=== PATIENT | female | born 1970 | race African-American/Black ===

== ENCOUNTER 2019-05-20 08:08 | Emergency (ER) | payer OTHER, SELFPAY ==
[2019-05-20 09:35] LABS: Potassium 3.4 mmol/L (3.5-5.1)
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
[2019-05-20 10:06] LABS: Absolute Lymphocytes (CBC) 1.3 K/uL (0.7-4.9); Basophils % 0.2 % (0-1.3); Hematocrit 36.9 % (36.0-45.0); Lymphocytes % 15.2 % (15.3-44.8); MPV 8.9 fL (7.6-11.3); RBC Red Blood Cell Count 4.56 M/uL (3.86-4.86)
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
[2019-05-20 11:29] VITALS: BP 143/90; TEMP 98.2; O2SAT 100
== END 2019-05-20 11:07 | disposition home or self-care (01) ==
LOC: ER 08:08
DX: S22.42XA Multiple fractures of ribs, left side, initial encounter for closed fracture (principal); V59.50XA Passenger in pick-up truck or van injured in collision with unspecified motor vehicles in traffic accident, initial encounter; I10 Essential (primary) hypertension; Z86.73 Personal history of transient ischemic attack (TIA), and cerebral infarction without residual deficits
CPT/HCPCS: 36415; 71046; 74177; 80048; 85025; 86850; 86900; 86901; 99284; Q9967

== ENCOUNTER 2020-07-31 23:49 | Inpatient (IN) | payer SELFPAY ==
[2020-08-01 00:30] LABS: Absolute Lymphocytes (CBC) 2.6 K/uL (0.7-4.9); Basophils % 0.8 % (0-1.3); Hematocrit 40.9 % (36.0-45.0); Lymphocytes % 31.7 % (15.3-44.8); MPV 8.3 fL (7.6-11.3); Protime INR 0.86; RBC Red Blood Cell Count 5.04 M/uL (3.86-4.86)
[2020-08-01] MEDS ORDERED: ASPIRIN 81 MG CHEWABLE TABLET ONE (00:44)
[2020-08-01 00:48] LABS: ALT/SGPT 18 U/L (12-78); AST/SGOT 10 U/L (15-37); Alkaline Phosphatase 109 U/L (45-117); BUN Blood Urea Nitrogen 10 mg/dL (7-18); Bicarbonate 26 mmol/L (21-32); Bilirubin Direct < 0.1 mg/dL (0-0.2); Bilirubin Total 0.3 mg/dL (0.2-1.0); Glucose Level 104 mg/dL (74-106); Magnesium 2.4 mg/dL (1.8-2.4); NT PRO-BNP 103 pg/mL (<125); Potassium 3.3 mmol/L (3.5-5.1); Protein, Total 8.4 g/dL (6.4-8.2); Sodium Level 144 mmol/L (136-145); Troponin (Emerg Dept Use Only) < 0.02 ng/mL (0.0-0.045)
--- NOTE | 2020-08-01 02:55 | ER ---
Nurse's Notes [facility] Name: Radha Alba Age: 49 yrs Sex: Female : 1970 Arrival Date: 07/31/2020 Time: 23:55 Bed 15 Private MD: Diagnosis: Chest pain, unspecified Presentation: 07/31 23:56 Chief complaint: Patient states: Left sided chest pain that radiates into the left arm sg at this time, reports feeling slightly short of breath with ambulation, denies N/V/D/Fever for triage. Coronavirus screen: Client denies travel out of the [place] in the last 14 days. shortness of breath, Client presents with at least one sign or symptom that may indicate coronavirus-19. Standard/surgical mask placed on the client. Ebola Screen: Patient negative for fever greater than or equal to 101.5 degrees Fahrenheit, and additional compatible Ebola Virus Disease symptoms Patient denies exposure to infectious person. Patient denies travel to an Ebola-affected area in the 21 days before illness onset. No symptoms or risks identified at this time. Initial Sepsis Screen: Does the patient meet any 2 criteria? No. Patient's initial sepsis screen is negative. Does the patient have a suspected source of infection? No. Patient's initial sepsis screen is negative. Risk Assessment: Do you want to hurt yourself or someone else? Patient reports no desire to harm self or others. Onset of symptoms was July 31, 2020. Care prior to arrival: None. Transition of care: patient was not received from another setting of care. 23:56 Method Of Arrival: Ambulatory 23:56 Acuity: ALEM 3 sg Historical: - Allergies: 23:56 No Known Allergies; sg - PMHx: 23:56 Anemia; High Cholesterol; stroke; Hypertension; uterine fibroids; sg - PSHx: 23:56 Tubal ligation; Hysterectomy; sg - Immunization history:: Adult Immunizations up to date. - Social history:: Smoking status: Patient denies any tobacco usage or history of. Screenin/02 00:05 Abuse screen: Denies threats or abuse. Nutritional screening: No deficits noted. ea Tuberculosis screening: No symptoms or risk factors identified. Fall Risk None identified. Assessment: 00:14 General: Appears in no apparent distress. comfortable, Behavior is calm, cooperative. mg2 Pain: Complains of pain in left side of the chest Pain radiates to across the right chest Pain currently is 1 out of 10 on a pain scale. Quality of pain is described as aching, Pain began gradually, 2 hours ago. Is intermittent. Neuro: Level of Consciousness is awake, alert, obeys commands, Oriented to person, place, time, situation. Cardiovascular: Capillary refill < 3 seconds Patient's skin is warm and dry. Respiratory: Airway is patent Respiratory effort is even, unlabored, Respiratory pattern is regular, symmetrical. Respiratory: Reports shortness of breath. GI: No signs and/or symptoms were reported involving the gastrointestinal system. : No signs and/or symptoms were reported regarding the genitourinary system. EENT: No signs and/or symptoms were reported regarding the EENT system. Derm: Skin is intact, is healthy with good turgor, Skin is pink, warm \T\ dry. normal. Musculoskeletal: Circulation, motion, and sensation intact. Capillary refill < 3 seconds. 02:09 Reassessment: Patient appears in no apparent distress at this time. Patient and/or mg2 family updated on plan of care and expected duration. Pain level reassessed. Patient is alert, oriented x 3, equal unlabored respirations, skin warm/dry/pink. Vital Signs: 00:03 BP 126 / 96; Pulse 99; Resp 18; Temp 98(O); Pulse Ox 99% ; mg2 00:05 Weight 72.57 kg; Height 5 ft. 4 in. (162.56 cm); ea 01:18 BP 116 / 77; Pulse 93; Resp 18; Pulse Ox 97% on R/A; mg2 02:09 BP 130 / 90; Pulse 95; Resp 18; Pulse Ox 98% on R/A; mg2 00:05 Body Mass Index 27.46 (72.57 kg, 162.56 cm) ea ED Course: 07/31 23:55 Patient arrived in ED. sg 23:55 Arm band placed on. sg 23:57 Triage completed. 08/01 00:00 Lan Dale MD is Attending Physician. mh7 00:02 Inserted saline lock: 20 gauge in right antecubital area, using aseptic technique. ds4 Blood collected. 00:05 Patient has correct armband on for positive identification. Placed in gown. Bed in low ea position. Call light in reach. quality assurance monitor body on. Pulse ox on. NIBP on. 00:05 Patient maintains SpO2 saturation greater than 95% on room air. ea 00:11 Cuauhtemoc Ramsey, RN is Primary Nurse. mg2 00:14 Door closed. Warm blanket given. mg2 00:15 No provider procedures requiring assistance completed. mg2 00:45 XRAY Chest (1 view) In Process Unspecified. EDMS 02:55 Quentin David MD is Hospitalizing Provider. mh7 03:14 Patient admitted, IV remains in place. mg2 03:14 covid swab sent to lab. mg2 Administered Medications: 00:32 Drug: Aspirin Chewable Tablet 324 mg Route: PO; mg2 02:10 Follow up: Response: No adverse reaction mg2 Outcome: 02:55 Decision to Hospitalize by Provider. 7 03:18 Admitted to Med/surg accompanied by nurse, via wheelchair, room 213, with chart, Report mg2 called to ASH Bojorquez 03:18 Condition: stable 03:18 Instructed on the need for admit, Demonstrated understanding of instructions. 03:22 Patient left the ED. mg2 Signatures: Dispatcher [employer] EDAK James Montenegro RN RN Chip Vo ds4 Cindi Anguiano RN RN ea Cuauhtemoc Ramsey, ASH ALEMAN mg2 Lan Dale MD MD 7 Corrections: (The following items were deleted from the chart) 00:28 00:03 BP 126 / 96; Pulse 99bpm; Resp 18bpm; Pulse Ox 99%; ea mg2
--- NOTE | 2020-08-01 02:55 | EDPHYS ---
Physician Documentation [facility] Name: Radha Alba Age: 49 yrs Sex: Female : 1970 Arrival Date: 07/31/2020 Time: 23:55 Bed 15 Private MD: ED Physician Lan Dale HPI: 08/01 01:00 This 49 yrs old Black Female presents to ER via Ambulatory with complaints of Chest mh7 Pain > 30 y/o. 01:00 The patient or guardian reports chest pain that is located primarily in the anterior mh7 chest wall, left. 01:00 Onset: last night, at 22:30. The pain radiates to the left arm. Associated signs and mh7 symptoms: Pertinent positives: shortness of breath, Pertinent negatives: abdominal pain, cough, diaphoresis, dizziness, headache, lower extremity pain, lower extremity swelling, lightheadedness, nausea, near syncope, palpitations, recent travel, syncope, vomiting. The chest pain is described as a heaviness. Duration: The patient or guardian reports multiple episodes, that are intermittent, that wax and wane. Modifying factors: The symptoms are alleviated by nothing. the symptoms are aggravated by nothing. Severity of pain: At its worst the pain was moderate today, in the emergency department the pain has improved moderately. Historical: - Allergies: 07/31 23:56 No Known Allergies; sg - PMHx: 23:56 Anemia; High Cholesterol; stroke; Hypertension; uterine fibroids; sg - PSHx: 23:56 Tubal ligation; Hysterectomy; sg - Immunization history:: Adult Immunizations up to date. - Social history:: Smoking status: Patient denies any tobacco usage or history of. ROS: 08/01 01:00 Constitutional: Negative for fever, chills, and weight loss, Eyes: Negative for injury, mh7 pain, redness, and discharge, ENT: Negative for injury, pain, and discharge, Neck: Negative for injury, pain, and swelling, Abdomen/GI: Negative for abdominal pain, nausea, vomiting, diarrhea, and constipation, Back: Negative for injury and pain, : Negative for injury, bleeding, discharge, and swelling, MS/Extremity: Negative for injury and deformity, Skin: Negative for injury, rash, and discoloration, Neuro: Negative for headache, weakness, numbness, tingling, and seizure, Psych: Negative for depression, anxiety, suicide ideation, homicidal ideation, and hallucinations, Allergy/Immunology: Negative for hives, rash, and allergies, Endocrine: Negative for neck swelling, polydipsia, polyuria, polyphagia, and marked weight changes, Hematologic/Lymphatic: Negative for swollen nodes, abnormal bleeding, and unusual bruising. Exam: 01:00 Constitutional: This is a well developed, well nourished patient who is awake, alert, mh7 and in no acute distress. Head/Face: Normocephalic, atraumatic. Eyes: Pupils equal round and reactive to light, extra-ocular motions intact. Lids and lashes normal. Conjunctiva and sclera are non-icteric and not injected. Cornea within normal limits. Periorbital areas with no swelling, redness, or edema. Neck: Trachea midline, no thyromegaly or masses palpated, and no cervical lymphadenopathy. Supple, full range of motion without nuchal rigidity, or vertebral point tenderness. No Meningismus. Chest/axilla: Normal chest wall appearance and motion. Nontender with no deformity. No lesions are appreciated. Cardiovascular: Regular rate and rhythm with a normal S1 and S2. No gallops, murmurs, or rubs. Normal PMI, no JVD. No pulse deficits. Respiratory: Lungs have equal breath sounds bilaterally, clear to auscultation and percussion. No rales, rhonchi or wheezes noted. No increased work of breathing, no retractions or nasal flaring. Abdomen/GI: Soft, non-tender, with normal bowel sounds. No distension or tympany. No guarding or rebound. No evidence of tenderness throughout. Back: No spinal tenderness. No costovertebral tenderness. Full range of motion. Skin: Warm, dry with normal turgor. Normal color with no rashes, no lesions, and no evidence of cellulitis. MS/ Extremity: Pulses equal, no cyanosis. Neurovascular intact. Full, normal range of motion. Neuro: Awake and alert, GCS 15, oriented to person, place, time, and situation. Cranial nerves II-XII grossly intact. Motor strength 5/5 in all extremities. Sensory grossly intact. Cerebellar exam normal. Normal gait. Psych: Awake, alert, with orientation to person, place and time. Behavior, mood, and affect are within normal limits. Vital Signs: 00:03 BP 126 / 96; Pulse 99; Resp 18; Temp 98(O); Pulse Ox 99% ; mg2 00:05 Weight 72.57 kg; Height 5 ft. 4 in. (162.56 cm); ea 01:18 BP 116 / 77; Pulse 93; Resp 18; Pulse Ox 97% on R/A; mg2 02:09 BP 130 / 90; Pulse 95; Resp 18; Pulse Ox 98% on R/A; mg2 00:05 Body Mass Index 27.46 (72.57 kg, 162.56 cm) ea MDM: 00:18 Patient medically screened. [facility] 02:53 Differential diagnosis: acute myocardial infarction, acute pericarditis, anxiety, mh7 coronary artery disease chest wall pain, congestive heart failure costochondritis, myocarditis, pericarditis, pneumonia, pneumothorax. HEART Score: History: Moderately Suspicious (1), ECG: Non specific repolarization disturbance / LBTB / PM (1), Age: > 45 and < 65 years (1), Risk Factors: 1 or 2 risk factors (1), [Hypercholesterolemia] [Hypertension] Troponin: < or = 1 x Normal Limit (0), Total Score = 4. The patient was given aspirin in the Emergency Department. Data reviewed: vital signs, nurses notes, old medical records, lab test result(s), cardiac enzymes, CBC, electrolytes, urinalysis, EKG, radiologic studies, plain films. Data interpreted: Pulse oximetry: on room air is 98 %. Interpretation: normal. Counseling: I had a detailed discussion with the patient and/or guardian regarding: the historical points, exam findings, and any diagnostic results supporting the discharge/admit diagnosis, lab results, radiology results, the need for further work-up and treatment in the hospital. 08/01 00:13 Order name: Basic Metabolic Panel mg2 08/01 00:13 Order name: CBC with Diff; Complete Time: :48 mg2 08/01 00:13 Order name: LFT's; Complete Time: 48 mg2 08/01 00:13 Order name: Magnesium; Complete Time: 48 mg2 08/01 00:13 Order name: NT PRO-BNP; Complete Time: :48 mg2 08/01 00:13 Order name: PT-INR; Complete Time: 48 mg2 08/01 00:13 Order name: Troponin (emerg Dept Use Only); Complete Time: 01:48 mg2 08/01 00:13 Order name: XRAY Chest (1 view) mg2 08/01 00:13 Order name: EKG; Complete Time: 00:14 mg2 08/01 00:13 Order name: Cardiac monitoring; Complete Time: 00:13 mg2 08/01 00:13 Order name: EKG - Nurse/Tech; Complete Time: 00:13 mg2 08/01 00:14 Order name: Basic Metabolic Panel; Complete Time: 01:48 EDCO 08/01 02:56 Order name: COVID-19 mg2 08/01 00:13 Order name: IV Saline Lock; Complete Time: 00:13 mg2 08/01 00:13 Order name: Labs collected and sent; Complete Time: 00:13 mg2 08/01 00:13 Order name: O2 Per Protocol; Complete Time: 00:13 mg2 08/01 00:13 Order name: O2 Sat Monitoring; Complete Time: 00:13 mg2 Administered Medications: 00:32 Drug: Aspirin Chewable Tablet 324 mg Route: PO; mg2 02:10 Follow up: Response: No adverse reaction mg2 Disposition: 08/01/20 02:55 Hospitalization ordered by Quentin David for Observation. Preliminary diagnosis is Chest pain, unspecified. - Bed requested for Telemetry/MedSurg (observation). - Status is Observation. mg2 - Condition is Stable. - Problem is new. - Symptoms have improved. Signatures: Dispatcher [employer] EDCO James Montenegro RN RN Tarah Oscar RN RN Cuauhtemoc Ramsey RN RN [facility] Lan Dale MD MD mh7 Corrections: (The following items were deleted from the chart) 03:08 02:55 Hospitalization Ordered by Quentin David MD for Observation. Preliminary cg diagnosis is Chest pain, unspecified. Bed requested for Telemetry/MedSurg (observation). Status is Observation. Condition is Stable. Problem is new. Symptoms have improved. mh7 03:22 03:08 08/01/2020 02:55 Hospitalization Ordered by Quentin David MD for Observation. mg2 Preliminary diagnosis is Chest pain, unspecified. Bed requested for Telemetry/MedSurg (observation). Status is Observation. Condition is Stable. Problem is new. Symptoms have improved. cg
--- NOTE | 2020-08-01 03:12 | P.HP ---
Certification for Inpatient Patient admitted to: Observation With expected LOS: <2 Midnights Patient will require the following post-hospital care: None Practitioner: I am a practitioner with admitting privileges, knowledge of patient current condition, hospital course, and medical plan of care. Services: Services provided to patient in accordance with Admission requirements found in Title 42 Section 412.3 of the Code of Federal Regulations <Faisal Foreman - Last Filed: 08/01/20 03:09> Patient History Date of Service: 08/01/20 Primary Care Provider: Whiting Ignacio Reason for admission: Chest pain History of Present Illness: 49-year-old female with history of hypertension, hyperlipi demia, CVA presents emergency department for chest pain. Patient reports that today around 11:00 p.m. she wanted to lie down and then when she began having retrosternal pressure-like chest pain, nonradiating, not associated with any other symptoms, not exacerbated or relieved by anything. Patient reports that she tried changing positions a few times and her pain was not relieved, this time she decided to come to the emergency department for further evaluation. Patient's workup in the emergency department unremarkable, troponin negative, EKG without acute findings, chest x-ray unremarkable. Patient has had echocardiogram and carotid ultrasound in the past when she had a stroke which was approximately 2013. Patient has never had stress test, patient reports that her vice president of customer service had her wear day event monitor and based on the results and recommended that she have a stress test approximately 1 year ago but she was unable to have this performed due to financial reasons and lack of insurance. ED provider wishes to admit patient for further evaluation and management. When I saw the patient in the emergency department she is awake, alert, oriented x3. Pain was relieved upon arrival to the emergency department, patient is currently pain-free. Patient be admitted under observation for chest pain. - Past Medical/Surgical History Diabetic: No -: Hypertension -: Hyperlipidemia -: Ischemic CVA-2013 -: Tubal ligation -: Uterine fibroid removed -: Hysterectomy Psychosocial/ Personal History: Patient lives at home with her family - Family History Father -: Lung disease Notes: Emphysema Mother -: Diabetes - Social History Smoking Status: Former smoker Alcohol use: Yes CD- Drugs: No Caffeine use: Yes Place of Residence: Home <Faisal Foreman - Last Filed: 08/01/20 03:09> Date of Service: 08/01/20 <Quentin David - Last Filed: 08/01/20 12:00> Allergies No Known Allergies Allergy (Verified 12/19/16 22:10) Home Medications: Multivitamin [Multivitamins] 1 cap PO DAILY 11/13/16 Aspirin [Aspirin EC 325 MG] 81 mg PO DAILY 08/01/20 Omeprazole [Prilosec] 1 tab PO DAILY 08/01/20 Rosuvastatin Calcium [Crestor] 10 mg PO DAILY 08/01/20 Review of Systems 10-point ROS is otherwise unremarkable Cardiovascular: Chest Pain, As per HPI <Faisal Foreman - Last Filed: 08/01/20 03:09> Physical Examination - Physical Exam General: Alert, In no apparent distress HEENT: Atraumatic, PERRLA, Mucous membr. moist/pink Neck: Supple, 2+ carotid pulse no bruit, No LAD Respiratory: Clear to auscultation bilaterally, Normal air movement Cardiovascular: Regular rate/rhythm, Normal S1 S2 Gastrointestinal: Normal bowel sounds, No tenderness Musculoskeletal: No tenderness Integumentary: No rashes Neurological: Normal speech, Normal strength at 5/5 x4 extr, Normal tone, Normal affect - Studies Laboratory Data (last 24 hrs) 08/01/20 00:02: PT 10.2, INR 0.86 08/01/20 00:02: WBC 8.3, Hgb 13.5, Hct 40.9, Plt Count 264 08/01/20 00:02: Sodium 144, Potassium 3.3 L, BUN 10, Creatinine 0.95, Glucose 104, Magnesium 2.4, Total Bilirubin 0.3, AST 10 L, ALT 18, Alkaline Phosphatase 109 <Faisal Foreman - Last Filed: 08/01/20 03:09> - Studies Laboratory Data (last 24 hrs) 08/01/20 05:20: Potassium 3.5, Troponin I < 0.02, Triglycerides 113, Cholesterol 123, HDL Cholesterol 87 H, Cholesterol/HDL Ratio 1.41 08/01/20 00:02: PT 10.2, INR 0.86 08/01/20 00:02: WBC 8.3, Hgb 13.5, Hct 40.9, Plt Count 264 08/01/20 00:02: Sodium 144, Potassium 3.3 L, BUN 10, Creatinine 0.95, Glucose 104, Magnesium 2.4, Total Bilirubin 0.3, AST 10 L, ALT 18, Alkaline Phosphatase 109 <Quentin David - Last Filed: 08/01/20 12:00> Assessment and Plan - Plan Assessment Chest pain rule out ACS Hypertension Hyperlipidemia GERD Plan Chest pain rule out ACS: Trend troponins, cardiology consult in place. Monitor on telemetry. Daily aspirin, statin, beta amparo. Continue home medications . DVT prophylaxis Lovenox 40 mg subcutaneous once daily. Hypertension: Obtain and continue home medications. Hyperlipidemia:Obtain and continue home medications. GERD:Obtain and continue home medications. Discharge Plan: Home Plan to discharge in: 24 Hours - Advance Directives Does patient have a Living Will: No Does patient have a Durable POA for Healthcare: No - Code Status/Comfort Care Code Status Assessed: Yes (Full code) Critical Care: No Time Spent Managing Pts Care (In Minutes): 55 <Faisal Foreman - Last Filed: 08/01/20 03:09> - Plan Plan of care discussed with Faisal Foreman, and I agree with the management plan as noted above. Patient seen and examined this morning. Continues with this intermittent chest pressure/tightness when lying down Troponin negative x2 so far. Reviewed case with cardiology and recommends nuclear excess stress test tomorrow Gen: NAD. CV: RRR, no m/r/g, no chest wall tenderness, Pulm: CTAB, Abd: soft, nontender, Ext: no edema <Quentin David - Last Filed: 08/01/20 12:00>
[2020-08-01 03:31] VITALS: O2SAT 98
[2020-08-01] MEDS ORDERED: ACETAMINOPHEN 500 MG TAB PO PRN (03:34)
[2020-08-01] MEDS ORDERED: ONDANSETRON 4 MG/2 ML VIAL IV PRN (03:34)
[2020-08-01 03:36] VITALS: BMI 35.2
[2020-08-01] MEDS: METOPROLOL TAR 25 MG TAB PO SCH ×2 (06:00→17:05)
[2020-08-01 06:04] LABS: HDL Cholesterol 87 mg/dL (40-60); LDL Cholesterol, Calculated 13 (<130); Potassium 3.5 mmol/L (3.5-5.1); Troponin I < 0.02 ng/mL (0.0-0.045)
[2020-08-01] MEDS: PANTOPRAZOLE 40MG TABLET PO SCH ×3 (06:16→08:13)
[2020-08-01] MEDS ORDERED: MORPHINE 2 MG/ML SYR IV PRN (08:01)
[2020-08-01] MEDS ORDERED: ONDANSETRON 4 MG/2 ML VIAL ONE (08:18)
[2020-08-01] MEDS ORDERED: MORPHINE 2 MG/ML SYR ONE (08:18)
--- NOTE | 2020-08-01 08:53 | RAD REPORT ---
EXAM DESCRIPTION: RAD - Chest Single View - 08/01/2020 12:45 am CLINICAL HISTORY: CHEST PAIN Chest pain. COMPARISON: Chest Pa And Lat (2 Views) dated 05/20/2019; Chest Single View dated 11/12/2016; CHEST SIN GLE VIEW dated 11/08/2014 FINDINGS: Portable technique limits examination quality. The lungs are grossly clear. The heart is normal in size. No displaced fractures. IMPRESSION: No acute intrathoracic process suspected.
[2020-08-01] MEDS: ENOXAPARIN 40 MG/0.4 ML SQ SCH (09:00)
[2020-08-01] MEDS ORDERED: POTASSIUM CL SA 10 MEQ TAB PO ONE (09:00)
[2020-08-01] MEDS: ASPIRIN EC 81 MG TAB PO SCH (09:24)
--- NOTE | 2020-08-01 19:21 | CON ---
Date of Consultation: 08/01/2020 Reason For Consultation: Chest pain. History Of Present Illness: A 49-year-old female with history of hypertension, dysl ipidemia, and CVA with residual weakness, presented with chest pain last night, pressure-like, left-s ided, no radiation, not related to exertion. No nausea, vomiting, or diaphoresis. Presented to the emergency room. EKG without acute abnormalities. Feels comfortable now, but she said the pain was t here earlier this morning. Past Medical History: As outlined above in the HPI. Medications: Refer to reconciliation sheet for detailed list. Past Surgical History: Hysterectomy. Allergies: NO KNOWN DRUG ALLERGIES. Family History: No premature coronary artery disease or cancer. Social History: She does not smoke or drink. Does not use any drugs. Review of Systems: All systems reviewed and they were negative except what mentioned in the HPI. Physical Examination: Vital Signs: Temperature is 97.2, pulse 78, breathing at 18, blood pressure 126/78, saturating 97% o n room air pleasant. General: Middle-aged female, in no distress. Head and Neck: Pupils are equal, reactive to light. Intact eye movements. No JVD. No cervical lym phadenopathy. Neck: Supple. Thyroid is not enlarged. Lungs: Clear to auscultation bilaterally. No rhonchi, rales, or crackles. No accessory muscle use. Heart: Regular rate and rhythm. No extra sounds. Abdomen: Soft, nontender. Bowel sounds positive. No organomegaly. No masses or hernia. No rigidi ty or rebound. Extremities: No edema, clubbing, or cyanosis. Intact pulses. Skin: No rash noted. Neuro: Alert, awake, and oriented x3. No acute focal deficits appreciated. Investigations: Troponin 3 sets are negative. Creatinine is 0.95 and hemoglobin is 16.5. Assessment And Plan: Chest pain. Has the risk factors including hypertension, dyslipidemia, and his tory of cerebrovascular accident, myocardial infarction was ruled out. Recommend exercise nuclear st ress test and an echocardiogram. Further recommendations based on the results of above tests. Meanw hile, continue aspirin 81 mg daily, oxygen therapy, and continue to monitor on telemetry. Thank you for this consultation. /MODL Voice ID: [id number] Report ID: [id number]
[2020-08-01] MEDS: ROSUVASTATIN 10 MG TAB PO SCH (21:10)
[2020-08-02 04:40] LABS: Magnesium 2.5 mg/dL (1.8-2.4); Potassium 3.9 mmol/L (3.5-5.1)
[2020-08-02] MEDS: METOPROLOL TAR 25 MG TAB PO SCH ×2 (06:00→17:17)
[2020-08-02] MEDS: PANTOPRAZOLE 40MG TABLET PO SCH (06:22)
[2020-08-02] MEDS: ASPIRIN EC 81 MG TAB PO SCH (07:59)
[2020-08-02] MEDS: ENOXAPARIN 40 MG/0.4 ML SQ SCH (09:00)
[2020-08-02] MEDS ORDERED: POTASSIUM CL SA 10 MEQ TAB PO ONE (09:00)
[2020-08-02] MEDS ORDERED: REGADENOSON 0.4 MG/5 ML SYR IV ONE (09:29)
--- NOTE | 2020-08-02 10:42 | P.DS ---
Admission Date: 08/01/20 Discharge Date: 08/03/20 Primary Care Provider: Nina Pierre Disposition: ROUTINE DISCHARGE Discharge Condition: FAIR Reason for Admission: Chest pain Procedures: None. Brief History of Present Illness: 49-year-old woman with a history of CVA, hypertension, hyperlipidemia presented to the emergency department with a complaint of chest pain which occurred at rest. EKG in the emergency department did not show any acute changes. Initial troponin was negative. Given patient's cardiac risk factors, she was hospitalized for further evaluation. Hospital Course: Troponin trended negative. Patient was seen by Cardiology-Dr. Liang who recommended exercise nuclear stress test. Patient was chest pain-free during the rest of the hospitalization. Stress test done reported reversible ischemia in the cardiac apex. Patient was planned for cardiac catheterization today but apparently there is an equipment failure. Dr. Liang recommended the patient stay another day for the cardiac catheterization tomorrow. Patient declined to stay another day. Dr. Liang is now arranging for patient to be admitted on Saturday night for cardiac catheterization the following morning. The patient is discharged with dual antiplatelet therapy-ASA and Plavix, beta-ampaor and statin. She is informed to report on Saturday night for cardiac catheterization the following morning. Vital Signs/Physical Exam: Temp Pulse Resp BP Pulse Ox 97.8 F 78 17 129/77 98 08/02/20 08:00 08/02/20 08:00 08/02/20 08:00 08/02/20 08:00 08/02/20 08:00 General: Alert, In no apparent distress Neck: Supple, JVD not distended Respiratory: Clear to auscultation bilaterally, Normal air movement Cardiovascular: No edema, Regular rate/rhythm, Normal S1 S2 Gastrointestinal: Soft and benign, No tenderness Musculoskeletal: No swelling, No erythema Integumentary: No rashes, No tenderness/swelling Neurological: Other (Nonfocal.) Laboratory Data at Discharge: WBC 8.3 K/uL (4.3-10.9) 08/01/20 00:02 Hgb 13.5 g/dL (12.0-15.0) 08/01/20 00:02 Hct 40.9 % (36.0-45.0) 08/01/20 00:02 Plt Count 264 K/uL (152-406) 08/01/20 00:02 PT 10.2 SECONDS (9.5-12.5) 08/01/20 00:02 INR 0.86 08/01/20 00:02 Sodium 143 mmol/L (136-145) 08/02/20 03:46 Potassium 3.9 mmol/L (3.5-5.1) 08/02/20 03:46 BUN 16 mg/dL (7-18) 08/02/20 03:46 Creatinine 0.94 mg/dL (0.55-1.3) 08/02/20 03:46 Glucose 98 mg/dL (74-106) 08/02/20 03:46 Magnesium 2.5 mg/dL (1.8-2.4) H 08/02/20 03:46 Total Bilirubin 0.3 mg/dL (0.2-1.0) 08/01/20 00:02 AST 10 U/L (15-37) L 08/01/20 00:02 ALT 18 U/L (12-78) 08/01/20 00:02 Alkaline Phosphatase 109 U/L (45-117) 08/01/20 00:02 Troponin I < 0.02 ng/mL (0.0-0.045) 08/01/20 10:50 Triglycerides 113 mg/dL (<150) 08/01/20 05:20 Cholesterol 123 mg/dL (<200) 08/01/20 05:20 HDL Cholesterol 87 mg/dL (40-60) H 08/01/20 05:20 Cholesterol/HDL Ratio 1.41 08/01/20 05:20 Home Medications: Multivitamin [Multivitamins] 1 cap PO DAILY 11/13/16 Aspirin [Aspirin EC 325 MG] 81 mg PO DAILY 08/01/20 Omeprazole [Prilosec] 1 tab PO DAILY 08/01/20 Rosuvastatin Calcium [Crestor] 10 mg PO DAILY 08/01/20 Clopidogrel Bisulfate [Plavix] 75 mg PO DAILY #30 tablet 08/03/20 Metoprolol Tartrate [Lopressor*] 25 mg PO BID 6AM 6PM #60 tab 08/03/20 New Medications: Metoprolol Tartrate [Lopressor*] 25 mg PO BID 6AM 6PM #60 tab Clopidogrel Bisulfate [Plavix] 75 mg PO DAILY #30 tablet Diet: AHA Activity: Ad dante Followup: Kerkhoven,Juan Carlos, APPLICATION SUPPORT LEAD [Primary Care Provider] - Steven Liang MD [ACTIVE - CAN ADMIT] - (report on 08/07/2020 for hospitalization for cardiac catheterization the following day.) Time spent managing pt's care (in minutes): 38
--- NOTE | 2020-08-02 12:46 | RAD REPORT ---
EXAM DESCRIPTION: NM - Rest Stress Cardiac Imaging - 08/02/2020 12:16 pm CLINICAL HISTORY: Chest pain COMPARISON: October 2016 TECHNIQUE: The patient was administered 10.7 mCi of Tc 99m Sestamibi prior to resting SPECT imaging of the heart. The patient was then administered 30.9 mCi of Tc 99m Sestamibi following exercise or ph armacologic stress. Multiplanar SPECT images were reviewed. FINDINGS: The end diastolic volume is 84 ml, the end systolic volume is 39 ml, and the ejection frac tion is 53 %. Ventricular volumes have improved since 2017. Ejection fraction is similar. Stress images show decreased activity along the anterior wall near the apex. This does not persist on rest imaging. No other area of stress-induced ischemic change. No large areas of scarred myocardium. IMPRESSION: Stress ischemic changes are identifiable in the anterior wall near the apex. Ventricular volumes and ejection fraction all fall within normal range. Ventricular volumes have impr eula since the 2017 study.
--- NOTE | 2020-08-02 15:49 | PN ---
Date of Progress Note: 08/02/2020 Subjective: This patient has been seen on 08/02/[address] Olivares saw her yesterday. Echocardiogram and stress test were ordered. Her echocardiogram is normal. Stress test remains pe nding. Overnight, no chest pain, no bump in troponin. The patient has multiple cardiac risk factors . We will see what her stress test shows before making further decisions. LINDA/CHAMP Voice ID: [id number] Report ID: [id number]
--- NOTE | 2020-08-02 16:36 | P.PN ---
Subjective Date of Service: 08/02/20 Primary Care Provider: [facility] Chief Complaint: Chest pain Patient has no complain. He denies any chest pain today. She also denies any shortness of breath. Physical Examination - Vital Signs Temperature: 97.2 F Blood Pressure: 134/81 Pulse: 74 Respirations: 18 Pulse Ox (%): 99 - Physical Exam General: Alert, In no apparent distress, Oriented x3 HEENT: Mucous membr. moist/pink Neck: Supple, JVD not distended Respiratory: Clear to auscultation bilaterally, Normal air movement Cardiovascular: No edema, Regular rate/rhythm, Normal S1 S2 Gastrointestinal: Normal bowel sounds, Soft and benign, No tenderness Musculoskeletal: No swelling, No erythema Integumentary: No rashes, No tenderness/swelling Neurological: Other (Nonfocal) - Studies Microbiology Data (last 24 hrs): 08/01/20 03:20 Nasopharnyx Coronavirus COVID-19 PCR - Final Assessment And Plan - Current Problems (Diagnosis) (1) History of CVA (cerebrovascular accident) Current Visit: Yes Status: Acute (2) Chest pain Onset Date: 11/13/16 Current Visit: No Status: Acute (3) Abnormal cardiovascular stress test Current Visit: Yes Status: Acute - Plan Troponin trended negative. Stress test result discussed with Dr. Liang. Dr. Liang recommend cardiac catheterization tomorrow. Patient NPO for cardiac catheterization. Continue metoprolol, Aspirin and Crestor. Monitor and optimize electrolytes.
[2020-08-02] MEDS: ROSUVASTATIN 10 MG TAB PO SCH ×2 (20:16→20:20)
[2020-08-03 04:32] LABS: Potassium 3.8 mmol/L (3.5-5.1)
[2020-08-03] MEDS ORDERED: NA CHLORIDE 0.9% 250 ML ONE (05:22)
[2020-08-03] MEDS ORDERED: KCL 20 MEQ/100 mL IVPB 20 MEQ/100 ML BAG IV SCH (06:00)
[2020-08-03] MEDS: METOPROLOL TAR 25 MG TAB PO SCH (06:11)
[2020-08-03] MEDS: ASPIRIN EC 81 MG TAB PO SCH (06:11)
[2020-08-03] MEDS: PANTOPRAZOLE 40MG TABLET PO SCH (06:29)
--- NOTE | 2020-08-03 07:56 | ECHO ---
HEIGHT: 5 ft 4 in WEIGHT: 205 lb 3.2 oz DATE OF STUDY: 08/02/[address]: rafal pham 2-DIMENSIONAL: YES M.MODE: YES DOPPLER: YES COLOR FLOW: YES TDS: PORTABLE: DEFINITY: BUBBLE STUDY: DIAGNOSIS: CHEST PAIN CARDIAC HISTORY: CATHERIZATION: NO SURGERY: NO PROSTHETIC VALVE: NO PACEMAKER: NO MEASUREMENTS (cm) DIASTOLIC (NORMALS) SYSTOLIC (NORMALS) IVSd 1.0 (0.6-1.2) LA Diam 3.0 (1.9-4.0) LVEF 47% LVIDd 3.8 (3.5-5.7) LVIDs 2.9 (2.0-3.5) %FS 23% LVPWd 1.1 (0.6-1.2) Ao Diam 2.7 (2.0-3.7) 2 DIMENSIONAL ASSESSMENT: RIGHT ATRIUM: LEFT ATRIUM: RIGHT VENTRICLE: LEFT VENTRICLE: TRICUSPID VALVE: MITRAL VALVE: PULMONIC VALVE: AORTIC VALVE: PERICARDIAL EFFUSION: AORTIC ROOT: LEFT VENTRICULAR WALL MOTION: DOPPLER/COLOR FLOW: COMMENTS: NORMAL 2-DIMENSIONAL ECHOCARDIOGRAM WITH DOPPLER. NO WALL MOTION ABNORMALITY. NO EFFUSION. TECHNOLOGIST: WISAM HADDAD
--- NOTE | 2020-08-03 08:05 | TREADPHA ---
DX: CHEST PAIN Date of Study: 08/02/2020 Ht: 5' 4 " Wt: 205 lb 3.2 oz Consulting Physician: AMIRA MEDICATIONS: ASPIRIN, LOVENOX, LOPRESSOR, CRESTOR HISTORY: HISTORY OF HYPERTENSION, HIGH CHOLESTEROL. ADMITTED FOR CHEST PAIN. PHYSICIAL EXAMINATION: RESTING B.P.: RESTING H.R.: RESTING EKG: NORMAL PROTOCOL: PHARMACOLOGIC EXERCISE TIME: 3:30 B.P. AT PEAK STRESS: IMPRESSION: NORMAL EXCERISE TOLERANCE TEST. ERNST PENDING. NO ARRHYTHMIA. NORMAL BLOOD PRESSURE RESPONSE. NO CHEST PAIN.
[2020-08-03 08:54] VITALS: TEMP 97.7
[2020-08-03 12:50] VITALS: BP 137/82
== END 2020-08-03 13:31 | disposition home or self-care (01) | DRG 313 ==
LOC: ER 23:49 → 2ND 08-01 02:53 → OBSVTOIN 08-01 07:45
PROVIDERS: ADMIT Hospitalist; ATTEND Internal Medicine
DX: R07.9 Chest pain, unspecified (principal); I10 Essential (primary) hypertension; E78.5 Hyperlipidemia, unspecified; K21.9 Gastro-esophageal reflux disease without esophagitis; I25.9 Chronic ischemic heart disease, unspecified; Z53.8 Procedure and treatment not carried out for other reasons; Z86.73 Personal history of transient ischemic attack (TIA), and cerebral infarction without residual deficits; Z98.51 Tubal ligation status; Z90.710 Acquired absence of both cervix and uterus; Z87.891 Personal history of nicotine dependence; Z79.82 Long term (current) use of aspirin; Z79.899 Other long term (current) drug therapy; Z79.02 Long term (current) use of antithrombotics/antiplatelets; Z20.828 Contact with and (suspected) exposure to other viral communicable diseases
CPT/HCPCS: 36415; 71045; 78452; 80048; 80061; 80076; 83735; 83880; 84132; 84439; 84443; 84484; 85025; 85610; 93005; 93017; 93306; 99285; A9500; G0378; J1650; J2270; J2405; J2785; J3480; J7050; U0002

== ENCOUNTER 2020-08-08 14:51 | Inpatient (IN) | payer SELFPAY ==
[2020-08-08 15:51] LABS: Absolute Lymphocytes (CBC) 1.9 K/uL (0.7-4.9); Basophils % 0.8 % (0-1.3); Hematocrit 38.6 % (36.0-45.0); MPV 8.7 fL (7.6-11.3); RBC Red Blood Cell Count 4.76 M/uL (3.86-4.86)
[2020-08-08 15:52] LABS: Protime INR 0.88
[2020-08-08 16:12] LABS: ALT/SGPT 18 U/L (12-78); AST/SGOT 13 U/L (15-37); Albumin 3.4 g/dL (3.4-5.0); Alkaline Phosphatase 92 U/L (45-117); BUN Blood Urea Nitrogen 16 mg/dL (7-18); Bicarbonate 26 mmol/L (21-32); Bilirubin Direct < 0.1 mg/dL (0-0.2); Bilirubin Total 0.3 mg/dL (0.2-1.0); Glucose Level 122 mg/dL (74-106); Magnesium 2.3 mg/dL (1.8-2.4); NT PRO-BNP 406 pg/mL (<125); Potassium 3.6 mmol/L (3.5-5.1); Protein, Total 6.9 g/dL (6.4-8.2); Sodium Level 145 mmol/L (136-145); Troponin (Emerg Dept Use Only) < 0.02 ng/mL (0.0-0.045)
--- NOTE | 2020-08-08 17:00 | EDPHYS ---
Physician Documentation [facility] Name: Radha Alba Age: 49 yrs Sex: Female : 1970 Arrival Date: 08/08/2020 Time: 14:52 Bed 7 Private MD: Steven Liang S ED Physician Roly Avalos HPI: 08/08 15:22 This 49 yrs old Black Female presents to ER via Wheelchair with complaints of Chest cp Pain. 15:22 The patient or guardian reports chest pain that is located primarily in the substernal cp area, anterior chest wall, left. 15:22 Onset: last week. Associated signs and symptoms: Pertinent positives: shortness of cp breath, Pertinent negatives: diaphoresis, lower extremity pain, lower extremity swelling. Patient reports she was hospitalized at [facility] last week for chest pain and had abnormal cardiac stress test. Has been having intermittent episodes of chest pain since discharge but not as painful as when admitted. Denies any current chest pain. Historical: - Allergies: 15:12 No Known Allergies; iw - Home Meds: 15:12 aspirin 81 mg Oral chew 1 tab once daily [Active]; rosuvastatin oral oral once daily iw [Active]; Metoprolol Tartrate Oral [Active]; Plavix 75 mg Oral tab 1 tab once daily [Active]; Omeprazole Oral once daily [Active]; - PMHx: 15:12 Anemia; High Cholesterol; Hypertension; stroke; uterine fibroids; iw - PSHx: 15:12 Tubal ligation; Hysterectomy; iw - Immunization history:: Adult Immunizations not up to date. - Social history:: Smoking status: Patient/guardian denies using tobacco. ROS: 15:27 Constitutional: Negative for body aches, chills, poor PO intake. cp 15:27 Cardiovascular: Positive for chest pain, Negative for edema, palpitations. 15:27 Respiratory: Positive for shortness of breath, on exertion. Negative for cough, wheezing. 15:27 Abdomen/GI: Negative for abdominal pain, nausea, vomiting, and diarrhea. 15:27 Back: Negative for radiated pain. cp 15:27 Neuro: Negative for altered mental status, dizziness, headache, loss of consciousness, cp syncope, weakness. 15:27 All other systems are negative. Exam: 15:10 ECG was reviewed by the Attending Physician. cp 15:35 Constitutional: The patient appears in no acute distress, alert, awake, cp non-diaphoretic, non-toxic, well developed, well nourished. 15:35 Head/Face: Normocephalic, atraumatic. cp 15:35 Eyes: Periorbital structures: appear normal, Conjunctiva: normal, no exudate, no injection, Sclera: no appreciated abnormality, Lids and lashes: appear normal, bilaterally. 15:35 ENT: External ear(s): are unremarkable, Nose: is normal, Posterior pharynx: Airway: no evidence of obstruction, patent. 15:35 Neck: ROM/movement: is normal, is supple, without pain, no range of motions limitations. 15:35 Chest/axilla: Inspection: normal, Palpation: is normal, no crepitus, no tenderness. 15:35 Cardiovascular: Rate: normal, Rhythm: regular, Edema: is not appreciated, JVD: is not appreciated. 15:35 Respiratory: the patient does not display signs of respiratory distress, Respirations: normal, no use of accessory muscles, no retractions, labored breathing, is not present, Breath sounds: are clear throughout, no decreased breath sounds. 15:35 Abdomen/GI: Inspection: abdomen appears normal, Palpation: abdomen is soft and non-tender, in all quadrants. 15:35 Back: pain, is absent, ROM is normal. 15:35 Neuro: Orientation: to person, place \T\ time. Mentation: is normal, Cerebellar function: is grossly normal, Motor: moves all fours, strength is normal, Sensation: is normal. Vital Signs: 15:13 BP 127 / 79; Pulse 72; Resp 16; Pulse Ox 98% on R/A; Weight 90.72 kg; Height 5 ft. 4 iw in. (162.56 cm); Pain 3/10; 15:30 Temp 98.4(O); aa5 16:30 BP 112 / 72; Pulse 65; Resp 16 S; Pulse Ox 99% on R/A; Pain 1/10; aa5 19:12 BP 130 / 87; Pulse 55; Resp 18; Pulse Ox 100% on R/A; mg2 19:20 BP 134 / 80; Pulse 58; Resp 18; Pulse Ox 98% on R/A; ea 15:13 Body Mass Index 34.33 (90.72 kg, 162.56 cm) MDM: 15:22 Patient medically screened. 16:55 Data reviewed: vital signs, nurses notes, lab test result(s), EKG, radiologic studies, cp plain films, I have discussed the patient's presentation/case with the attending Emergency Department Physician; and as a result, I will admit patient. 16:55 Differential diagnosis: abnormal EKG, acute myocardial infarction, pneumonia, cp pneumothorax, pulmonary embolus, stable angina, unstable angina. Test interpretation: by ED physician or midlevel provider: ECG, chest xray negative for infiltrates. 16:57 The patient was not given aspirin in the Emergency Department. Patient reports taking cp aspirin within the past 24 hours. Physician consultation: Scotty Huynh DO was called at 16:58, was contacted at 16:58, regarding admission, to the telemetry unit. patient's condition. 08/08 15:13 Order name: Basic Metabolic Panel; Complete Time: 16:18 08/08 16:18 Interpretation: Normal except: CL 113; GLUC 122; GFR 82. 08/08 15:13 Order name: CBC with Diff; Complete Time: 16:12 08/08 16:12 Interpretation: Normal except: MCH 26.6. 08/08 15:13 Order name: LFT's; Complete Time: 16:18 08/08 15:13 Order name: Magnesium; Complete Time: 16:18 08/08 15:13 Order name: NT PRO-BNP; Complete Time: 16:18 08/08 15:13 Order name: PT-INR; Complete Time: 16:12 08/08 15:13 Order name: Troponin (emerg Dept Use Only); Complete Time: 16:18 08/08 16:19 Interpretation: Within normal limits: TROPED < 0.02. 08/08 15:13 Order name: XRAY Chest (1 view); Complete Time: 17:58 08/08 17:58 Interpretation: Report reviewed. 08/08 15:13 Order name: EKG; Complete Time: 15:14 08/08 15:13 Order name: Cardiac monitoring; Complete Time: 15:29 08/08 15:13 Order name: EKG - Nurse/Tech; Complete Time: 15:29 08/08 15:13 Order name: IV Saline Lock; Complete Time: 16:15 iw 08/08 15:13 Order name: Labs collected and sent; Complete Time: 16:15 iw 08/08 15:13 Order name: O2 Per Protocol; Complete Time: iw 08/08 15:13 Order name: O2 Sat Monitoring; Complete Time: 15:29 iw EC:10 Rate is 69 beats/min. Rhythm is regular. MT interval is normal. QRS interval is normal. cp QT interval is normal. T waves are Inverted in leads III, aVF, aVR, V5. Interpreted by me. Reviewed by me. Administered Medications: 17: Drug: Aspirin Chewable Tablet 162 mg Route: PO; bp 19:13 Follow up: Response: No adverse reaction mg2 Disposition: : Chart complete. 08/09 06:57 Co-signature as Attending Physician, Roly Avalos MD I agree with the assessment and kdr plan of care. Disposition: 08/08/20 16:59 Hospitalization ordered by Scotty Huynh for Observation. Preliminary diagnosis is Angina pectoris, unspecified. - Bed requested for Telemetry/MedSurg (observation). - Status is Observation. ea - Condition is Stable. - Problem is an ongoing problem. - Symptoms have improved. Signatures: Dispatcher [employer] EDMS Lashanda Oneill bd Roly Avalos MD MD [facility] Treva Gonzalez, RN RN iw Leonardo Hernandez PA PA cp Antunez, Elena, RN RN ea Peltier, Brian, RN RN bp Gardose, Michele RN mg2 Corrections: (The following items were deleted from the chart) 08/08 17:48 16:59 Hospitalization Ordered by Scotty Huynh DO for Observation. Preliminary bd diagnosis is Angina pectoris, unspecified. Bed requested for Telemetry/MedSurg (observation). Status is Observation. Condition is Stable. Problem is an ongoing problem. Symptoms have improved. cp 19:46 17:48 08/08/2020 16:59 Hospitalization Ordered by Scotty Huynh DO for Observation. ea Preliminary diagnosis is Angina pectoris, unspecified. Bed requested for Telemetry/MedSurg (observation). Status is Observation. Condition is Stable. Problem is an ongoing problem. Symptoms have improved. bd
--- NOTE | 2020-08-08 17:00 | ER ---
Nurse's Notes [facility] Name: Radha Alba Age: 49 yrs Sex: Female : 1970 Arrival Date: 08/08/2020 Time: 14:52 Bed 7 Private MD: Steven Liang S Diagnosis: Angina pectoris, unspecified Presentation: 08/08 15:06 Chief complaint: Patient states: was admitted for chest pain last week, had stress test iw done and was told there was something abnormal but was to follow up and if she had more chest pain to come back to ER, pt has been having intermittent midsternal chest pain, radiates from her left breast, lasts about 5 minutes, every few hours, feels like pressure. Initial Sepsis Screen: Does the patient meet any 2 criteria? No. Patient's initial sepsis screen is negative. Does the patient have a suspected source of infection? No. Patient's initial sepsis screen is negative. Risk Assessment: Do you want to hurt yourself or someone else? Patient reports no desire to harm self or others. Onset of symptoms. 15:06 Method Of Arrival: Wheelchair iw 15:06 Acuity: ALEM 3 iw 15:20 Coronavirus screen: Client denies travel out of the [place] in the last 14 days. At this aa5 time, the client does not indicate any symptoms associated with coronavirus-19. Ebola Screen: Patient negative for fever greater than or equal to 101.5 degrees Fahrenheit, and additional compatible Ebola Virus Disease symptoms. Historical: - Allergies: 15:12 No Known Allergies; iw - Home Meds: 15:12 aspirin 81 mg Oral chew 1 tab once daily [Active]; rosuvastatin oral oral once daily iw [Active]; Metoprolol Tartrate Oral [Active]; Plavix 75 mg Oral tab 1 tab once daily [Active]; Omeprazole Oral once daily [Active]; - PMHx: 15:12 Anemia; High Cholesterol; Hypertension; stroke; uterine fibroids; iw - PSHx: 15:12 Tubal ligation; Hysterectomy; iw - Immunization history:: Adult Immunizations not up to date. - Social history:: Smoking status: Patient/guardian denies using tobacco. Screenin:30 Abuse screen: Denies threats or abuse. Nutritional screening: No deficits noted. aa5 Tuberculosis screening: No symptoms or risk factors identified. Fall Risk None identified. Assessment: 15:20 General: Appears comfortable, Behavior is calm, cooperative. Pain: Complains of pain in aa5 chest Pain does not radiate. Pain currently is 3 out of 10 on a pain scale. Quality of pain is described as pressure, sharp, Is episodic. Neuro: Level of Consciousness is awake, alert, obeys commands, Oriented to person, place, time, situation. Cardiovascular: Reports chest pain, Heart tones S1 S2 present Rhythm is regular. Respiratory: Airway is patent Respiratory effort is even, unlabored, Respiratory pattern is regular, symmetrical. GI: Abdomen is round Abd is soft and non tender X 4 quads. Patient currently denies nausea, vomiting. : No signs and/or symptoms were reported regarding the genitourinary system. EENT: No signs and/or symptoms were reported regarding the EENT system. Derm: Skin is dry, Skin is normal, Skin temperature is warm. Musculoskeletal: Range of motion: intact in all extremities. 16:40 Reassessment: Pt sitting up in bed. Awaiting complete lab and radiology results, pt aa5 notified of wait time. Pt states no complaints at this time, states feeling better, rates pain 1/10 on a pain scale. . 19:07 General: Appears in no apparent distress. Behavior is calm, cooperative, appropriate ea for age. Pain: Denies pain. Neuro: Level of Consciousness is awake, alert, obeys commands, Oriented to person, place, time, situation. Cardiovascular: Patient's skin is warm and dry. Respiratory: Airway is patent Respiratory effort is even, unlabored, Respiratory pattern is regular, symmetrical. Derm: Skin is dry, Skin is normal, Skin temperature is warm. 19:17 Reassessment: Attempted to call report, nurse will call back. ea 19:35 Reassessment: Patient and/or family updated on plan of care and expected duration. Pain ea level reassessed. Report called to receiving nurse on second floor. Vital Signs: 15:13 BP 127 / 79; Pulse 72; Resp 16; Pulse Ox 98% on R/A; Weight 90.72 kg; Height 5 ft. 4 iw in. (162.56 cm); Pain 3/10; 15:30 Temp 98.4(O); aa5 16:30 BP 112 / 72; Pulse 65; Resp 16 S; Pulse Ox 99% on R/A; Pain 1/10; aa5 19:12 BP 130 / 87; Pulse 55; Resp 18; Pulse Ox 100% on R/A; mg2 19:20 BP 134 / 80; Pulse 58; Resp 18; Pulse Ox 98% on R/A; ea 15:13 Body Mass Index 34.33 (90.72 kg, 162.56 cm) iw ED Course: 14:52 Patient arrived in ED. ag5 14:52 Steven Liang MD is Private Physician. ag5 15:09 Triage completed. iw 15:13 Arm band placed on. iw 15:15 Leonardo Hernandez PA is PHCP. cp 15:15 Roly Avalos MD is Attending Physician. cp 15:20 Patient has correct armband on for positive identification. Placed in gown. Bed in low aa5 position. Call light in reach. Side rails up X2. equipment monitor phototypesetting on. Pulse ox on. NIBP on. 15:28 Lory Rosen RN is Primary Nurse. aa5 15:31 EKG done, by ED staff, reviewed by Roly Avalos MD. Missed attempt(s): 20 gauge in em1 right antecubital area. Bleeding controlled, band aid applied, catheter tip intact. 15:35 Initial lab(s) drawn, by me, sent to lab. Inserted saline lock: 22 gauge in right aa5 forearm, using aseptic technique. Blood collected. 15:51 XRAY Chest (1 view) In Process Unspecified. EDMS 16:00 No provider procedures requiring assistance completed. Patient maintains SpO2 aa5 saturation greater than 95% on room air. 16:58 Scotty Huynh DO is Hospitalizing Provider. cp 19:00 Report given to ASH Puente. aa5 19:45 Patient admitted, IV remains in place. ea Administered Medications: 17:15 Drug: Aspirin Chewable Tablet 162 mg Route: PO; bp 19:13 Follow up: Response: No adverse reaction mg2 Outcome: 16:59 Decision to Hospitalize by Provider. cp 19:08 Condition: stable ea 19:08 Instructed on the need for admit, Demonstrated understanding of instructions. 19:45 Admitted to Med/surg accompanied by nurse, via wheelchair, with chart, Report called to ea Receiving nurse on second floor. 19:46 Patient left the ED. ea Signatures: Dispatcher [employer] EDMS Treva Gonzalez, RN RN iw Radu Estrada em1 Lory Rosen, RN RN aa5 Leonardo Hernandez PA PA cp Antunez, Elena, RN Adolfo Sarkar ea, RN Cuauhtemoc Carlisle, ASH ALEMAN [facility] Connor, Hailey ag5 Corrections: (The following items were deleted from the chart) 16:20 General: Appears comfortable, Behavior is calm, cooperative, aa5 aa5 : 16:20 Pain: Complains of pain in chest Pain does not radiate. Pain currently is 3 out aa5 of 10 on a pain scale. Quality of pain is described as pressure, sharp, Is episodic, aa5 16:20 Neuro: Level of Consciousness is awake, alert, obeys commands, Oriented to aa5 person, place, time, situation, aa5 : 16:20 Cardiovascular: Reports chest pain, Heart tones S1 S2 present Rhythm is regular aa5 aa5 16:20 Respiratory: Airway is patent Respiratory effort is even, unlabored, Respiratory aa5 pattern is regular, symmetrical, aa5 16:20 GI: Abdomen is round Abd is soft and non tender X 4 quads. Patient currently aa5 denies nausea, vomiting, aa5 16:20 : No signs and/or symptoms were reported regarding the genitourinary system. aa5aa5 : 16:20 EENT: No signs and/or symptoms were reported regarding the EENT system. aa5 aa5 16:20 Derm: Skin is dry, Skin is normal, Skin temperature is warm aa5 aa5 24 16:20 Musculoskeletal: Range of motion: intact in all extremities, aa5 aa5
--- NOTE | 2020-08-08 17:04 | RAD REPORT ---
EXAM DESCRIPTION: RAD - Chest Single View - 08/08/2020 3:50 pm CLINICAL HISTORY: CHEST PAIN COMPARISON: Portable August 01 TECHNIQUE: AP portable chest image was obtained 08/08/2020 3:50 pm . FINDINGS: Lungs are clear. Heart and vasculature are normal. No measurable pleural effusion and no p neumothorax. No acute bony abnormality seen. No acute aortic findings suspected. IMPRESSION: No acute cardiopulmonary process. No identifiable change from comparison.
[2020-08-08] MEDS ORDERED: ASPIRIN 81 MG CHEWABLE TABLET ONE (17:32)
--- NOTE | 2020-08-08 17:45 | P.HP ---
Certification for Inpatient Patient admitted to: Observation With expected LOS: <2 Midnights Patient will require the following post-hospital care: None Practitioner: I am a practitioner with admitting privileges, knowledge of patient current condition, hospital course, and medical plan of care. Services: Services provided to patient in accordance with Admission requirements found in Title 42 Section 412.3 of the Code of Federal Regulations Patient History Date of Service: 08/08/20 Primary Care Provider: Nina Pierre; Cardiology-Dr. Liang Reason for admission: Chest pain History of Present Illness: 49-year-old female presented to the emergency room with chest pain. Patient recently hospitalized for chest pain. This was August 01 through the . The patient had abnormal so cardiac stress test. Heart catheterization was to be arranged but equipment failure was noted. It was recommended that she stay another day for heart catheterization. The patient desired to go home to set this up as an outpatient. Since that time patient has reported chest pain. Chest pain comes and goes. It is worse when she lies down. Today she felt a tightness to her chest. Patient has been compliant with her medication for hypertension, hyperlipidemia. Medications include Plavix, aspirin, metoprolol, Lipitor and Prilosec. She came to the ER for further evaluation. In the ER patient was evaluated. No significant EKG changes noted. Blood pressure stable. Initial cardiac enzymes unremarkable. Due to her significant history the patient was admitted for further evaluation and treatment. Allergies No Known Allergies Allergy (Verified 12/19/16 22:10) Home medications list reviewed: Yes Home Medications: Multivitamin [Multivitamins] 1 cap PO DAILY 11/13/16 Aspirin [Aspirin EC 325 MG] 81 mg PO DAILY 08/01/20 Omeprazole [Prilosec] 1 tab PO DAILY 08/01/20 Rosuvastatin Calcium [Crestor] 10 mg PO DAILY 08/01/20 Clopidogrel Bisulfate [Plavix] 75 mg PO DAILY #30 tablet 08/03/20 Metoprolol Tartrate [Lopressor*] 25 mg PO BID 6AM 6PM #60 tab 08/03/20 - Past Medical/Surgical History Diabetic: No -: Hypertension -: Hyperlipidemia -: Ischemic CVA-2013 -: Anemia -: NSTEMI 2016 -: Former tobacco use -: Tubal ligation -: Uterine fibroid removed -: Hysterectomy Psychosocial/ Personal History: Patient lives at home with her family - Family History Father -: Lung disease Notes: Emphysema Mother -: Diabetes - Social History Smoking Status: Former smoker Counseled patient to stop smoking for: less than 10 minutes Smoking therapy provided: Yes Patient receptive to therapy: Yes Alcohol use: Yes CD- Drugs: No Caffeine use: Yes Place of Residence: Home Review of Systems General: As per HPI Eyes: Unremarkable ENT: As per HPI Respiratory: Unremarkable Cardiovascular: Chest Pain, As per HPI Gastrointestinal: Unremarkable Genitourinary: Unremarkable Musculoskeletal: Unremarkable Integumentary: Unremarkable Neurological: Unremarkable Lymphatics: Unremarkable Physical Examination - Physical Exam General: Alert, In no apparent distress, Oriented x3, Cooperative HEENT: Atraumatic, Normocephalic, Mucous membr. moist/pink Neck: Supple Respiratory: Clear to auscultation bilaterally, Normal air movement Cardiovascular: Normal pulses, Regular rate/rhythm Gastrointestinal: Normal bowel sounds, Soft and benign, Non-distended, No tenderness, No masses, No rebound, No guarding Musculoskeletal: No erythema, No tenderness, No warmth Integumentary: No tenderness/swelling, No erythema, No warmth, No cyanosis Neurological: Normal speech, Normal strength at 5/5 x4 extr, Normal tone, Normal affect - Studies Laboratory Data (last 24 hrs) 08/08/20 15:35: PT 10.4, INR 0.88 08/08/20 15:35: WBC 7.1 D, Hgb 12.6, Hct 38.6, Plt Count 231 08/08/20 15:35: Sodium 145, Potassium 3.6, BUN 16, Creatinine 0.88, Glucose 122 H, Magnesium 2.3, Total Bilirubin 0.3, AST 13 L, ALT 18, Alkaline Phosphatase 92 Assessment and Plan - Plan Impression: Chest pain suspect unstable angina with recent abnormal cardiac stress test suspect CAD Hypertension Hyperlipidemia Former tobacco use GERD Plan: Chest pain suspect unstable angina with recent abnormal cardiac stress test suspect CAD: Patient will be admitted for further evaluation and treatment. W ill continue to monitor cardiac enzymes and telemetry. Will keep the patient NPO after midnight as the patient will likely require heart catheterization. Will discuss with cardiology. Recent abnormal cardiac stress tests noted. Will continue with aspirin, Plavix, Lipitor, and metoprolol. DVT prophylaxis-Lovenox in place. Await further evaluation by Cardiology with heart catheterization. Hypertension: Continue metoprolol. Will adjust accordingly. Hyperlipidemia: Continue Lipitor Former tobacco use: Will provide nicotine patch. GERD: Will provide medication Discharge Plan: Home Plan to discharge in: 24 Hours - Advance Directives Does patient have a Living Will: No Does patient have a Durable POA for Healthcare: No - Code Status/Comfort Care Code Status Assessed: Yes (Patient is full code) Time Spent Managing Pts Care (In Minutes): 55
[2020-08-08] MEDS ORDERED: ACETAMINOPHEN 500 MG TAB PO PRN (19:17)
[2020-08-08] MEDS ORDERED: ONDANSETRON 4 MG/2 ML VIAL IV PRN (19:17)
[2020-08-08] MEDS: METOPROLOL TAR 25 MG TAB PO SCH (20:11)
[2020-08-08 20:50] VITALS: BMI 31.8
[2020-08-08] MEDS ORDERED: POTASSIUM CL SA 10 MEQ TAB PO ONE (21:00)
[2020-08-08] MEDS ORDERED: ATORVASTATIN 20 MG TAB PO SCH (21:00)
[2020-08-08] MEDS ORDERED: ATORVASTATIN 80 MG TAB PO SCH (21:00)
[2020-08-08 23:48] LABS: CKMB Creatine Kinase MB < 1.0 ng/mL (0.3-3.6); Creatine Phosphokinase 52 U/L (26-192); Troponin I < 0.02 ng/mL (0.0-0.045)
[2020-08-09 05:39] LABS: Absolute Lymphocytes (CBC) 2.3 K/uL (0.7-4.9); Basophils % 0.8 % (0-1.3); Hematocrit 40.6 % (36.0-45.0); MPV 8.7 fL (7.6-11.3)
[2020-08-09] MEDS: METOPROLOL TAR 25 MG TAB PO SCH (05:39)
[2020-08-09 05:52] LABS: Urine Appearance CLEAR; Urine Bilirubin NEGATIVE (NEG); Urine Blood NEGATIVE (NEG); Urine Color YELLOW; Urine Glucose NEGATIVE (NEG); Urine Protein NEGATIVE (NEG); Urine Specific Gravity >=1.030 (1.005-1.030)
[2020-08-09 05:53] LABS: Urine Microscopic Reflex NO UMIC
[2020-08-09 06:06] LABS: BUN Blood Urea Nitrogen 14 mg/dL (7-18); Bicarbonate 30 mmol/L (21-32); CKMB Creatine Kinase MB < 1.0 ng/mL (0.3-3.6); Creatine Phosphokinase 59 U/L (26-192); Glucose Level 98 mg/dL (74-106); Potassium 3.5 mmol/L (3.5-5.1); Sodium Level 142 mmol/L (136-145); Troponin I < 0.02 ng/mL (0.0-0.045)
[2020-08-09 06:07] LABS: HDL Cholesterol 74 mg/dL (40-60); LDL Cholesterol, Calculated 34 (<130); Magnesium 2.5 mg/dL (1.8-2.4)
[2020-08-09] MEDS ORDERED: PANTOPRAZOLE 40MG TABLET PO SCH (06:30)
[2020-08-09] MEDS ORDERED: ASPIRIN EC 81 MG TAB PO SCH (09:00)
[2020-08-09] MEDS ORDERED: CLOPIDOGREL 75 MG TABLET PO SCH (09:00)
[2020-08-09] MEDS ORDERED: POTASSIUM CL SA 10 MEQ TAB PO ONE (09:00)
[2020-08-09] MEDS ORDERED: NICOTINE 21 MG/PAT TD SCH (09:00)
[2020-08-09] MEDS ORDERED: ENOXAPARIN 40 MG/0.4 ML SQ SCH (09:00)
[2020-08-09 10:54] VITALS: O2SAT 100
[2020-08-09] MEDS ORDERED: Ringers Lactate 1,000 ML IV ONE (11:46)
[2020-08-09 11:52] VITALS: TEMP 96.4
--- NOTE | 2020-08-09 12:06 | EKG ---
Test Date: 2020-08-08 Test Time: 15:03:21 Assistant Store Manager Trainee: ALETHA MEASUREMENT RESULTS: Intervals: Rate: 69 CT: 124 QRSD: 78 QT: 388 QTc: 415 Geddes: P: 39 CT: 124 QRS: 19 T: -8 INTERPRETIVE STATEMENTS: Normal sinus rhythm Nonspecific T wave abnormality Abnormal ECG Compared to ECG 08/01/2020 08:12:28 T-wave abnormality now present Electronically Signed On 08-09-20 12:03:22 TURNING LATHE TENDER by Steven Liang
--- NOTE | 2020-08-09 13:26 | P.DS ---
Admission Date: 08/09/20 Discharge Date: 08/09/20 Primary Care Provider: [facility]; Cardiology-Dr. Liang Disposition: ROUTINE DISCHARGE Discharge Condition: GOOD Reason for Admission: Chest pain Consultations: Cardiology-Dr. Liang Procedures: Heart catheterization: Normal coronaries noted, no further intervention required Medical problem list: Chest pain status post heart catheterization showing normal coronaries Hypertension Hyperlipidemia Former tobacco use GERD Anxiety History of CVA Brief History of Present Illness: 49-year-old female presented to the emergency room with chest pain. Patient recently hospitalized for chest pain. This was August 01 through the . The patient had abnormal so cardiac stress test. Heart catheterization was to be arranged but equipment failure was noted. It was recommended that she stay another day for heart catheterization. The patient desired to go home to set this up as an outpatient. Since that time patient has reported chest pain. Chest pain comes and goes. It is worse when she lies down. Today she felt a tightness to her chest. Patient has been compliant with her medication for hypertension, hyperlipidemia. Medications include Plavix, aspirin, metoprolol, Lipitor and Prilosec. She came to the ER for further evaluation. In the ER patient was evaluated. No significant EKG changes noted. Blood pressure stable. Initial cardiac enzymes unremarkable. Due to her significant history the patient was admitted for further evaluation and treatment. Hospital Course: Patient presented with chest pain. Patient had recent abnormal cardiac stress test. Patient admitted due to persistent chest pain. Heart catheterization was performed by Cardiology. Heart catheterization showed normal coronaries. No further intervention required at this time. Chest pain may be anxiety related. Patient takes medication for GERD. If chest pain persists need to consider GI evaluation as an outpatient. At discharge patient will continue with aspirin 81 mg daily, Plavix 75 mg daily, metoprolol 25 mg 1 pill twice daily, and Crestor 10 mg daily. Recommend follow up with cardiology in 2-4 weeks to follow up this hospitalization. Patient with hypertension. This appears stable at this time. At discharge she will continue with metoprolol 25 mg 1 pill twice daily. Recommend to maintain blood pressure less than 130/80. Further adjustment can be done by her PCP. Patient with hyperlipidemia. LDL 74. At discharge she may continue with Crestor 10 mg daily. Patient with former tobacco use. Patient plans to continue to quit. Tobacco cessation education provided. Patient with GERD. At discharge she will continue with Prilosec 40 mg daily. Patient will need to consider GI evaluation as an outpatient to further evaluate. Patient with history of CVA. This appears stable. At discharge she will continue with aspirin, Plavix, metoprolol and Crestor as stated above. Patient with increased anxiety at home. Patient would benefit with counseling. This can be further addressed as an outpatient by her PCP. Vital Signs/Physical Exam: Temp Pulse Resp BP Pulse Ox 96.4 F L 51 14 133/91 H 99 08/09/20 11:38 08/09/20 13:21 08/09/20 13:21 08/09/20 13:21 08/09/20 08:00 General: Alert, In no apparent distress, Oriented x3, Cooperative HEENT: Atraumatic Neck: Supple Respiratory: Clear to auscultation bilaterally, Normal air movement Cardiovascular: Normal pulses, Regular rate/rhythm Gastrointestinal: Normal bowel sounds, Soft and benign, Non-distended, No tenderness, No masses, No rebound, No guarding Musculoskeletal: No tenderness, No warmth Neurological: Normal speech, Normal strength at 5/5 x4 extr, Normal tone, Normal affect Laboratory Data at Discharge: WBC 7.3 K/uL (4.3-10.9) 08/09/20 05:23 Hgb 13.3 g/dL (12.0-15.0) 08/09/20 05:23 Hct 40.6 % (36.0-45.0) 08/09/20 05:23 Plt Count 230 K/uL (152-406) 08/09/20 05:23 PT 10.4 SECONDS (9.5-12.5) 08/08/20 15:35 INR 0.88 08/08/20 15:35 Sodium 142 mmol/L (136-145) 08/09/20 05:23 Potassium 3.5 mmol/L (3.5-5.1) 08/09/20 05:23 BUN 14 mg/dL (7-18) 08/09/20 05:23 Creatinine 0.92 mg/dL (0.55-1.3) 08/09/20 05:23 Glucose 98 mg/dL (74-106) 08/09/20 05:23 Magnesium 2.5 mg/dL (1.8-2.4) H 08/09/20 05:23 Total Bilirubin 0.3 mg/dL (0.2-1.0) 08/08/20 15:35 AST 13 U/L (15-37) L 08/08/20 15:35 ALT 18 U/L (12-78) 08/08/20 15:35 Alkaline Phosphatase 92 U/L (45-117) 08/08/20 15:35 Troponin I < 0.02 ng/mL (0.0-0.045) 08/09/20 05:23 Triglycerides 133 mg/dL (<150) 08/09/20 05:23 Cholesterol 135 mg/dL (<200) 08/09/20 05:23 HDL Cholesterol 74 mg/dL (40-60) H 08/09/20 05:23 Cholesterol/HDL Ratio 1.82 08/09/20 05:23 Home Medications: Multivitamin [Multivitamins] 1 cap PO DAILY 11/13/16 Omeprazole [Prilosec] 1 tab PO DAILY 08/01/20 Rosuvastatin Calcium [Crestor] 10 mg PO BEDTIME 08/01/20 Clopidogrel Bisulfate [Plavix*] 75 mg PO DAILY #30 tablet 08/03/20 Metoprolol Tartrate [Lopressor*] 25 mg PO BID 6AM 6PM #60 tab 08/03/20 Aspirin [Aspirin EC 81 MG] 1 tab PO DAILY 08/08/20 Patient Discharge Instructions: 1. Recommend follow up with PCP in 1 week to follow up this hospitalization. 2. Patient presented with chest pain. Patient had recent abnormal cardiac stress test. Patient admitted due to persistent chest pain. Heart catheterization was performed by Cardiology. Heart catheterization showed normal coronaries. No further intervention required at this time. Chest pain may be anxiety related. Patient takes medication for GERD. If chest pain persists need to consider GI evaluation as an outpatient. At discharge patient will continue with aspirin 81 mg daily, Plavix 75 mg daily, metoprolol 25 mg 1 pill twice daily, and Crestor 10 mg daily. Recommend follow up with cardiology in 2-4 weeks to follow up this hospitalization. 3. Patient with hypertension. This appears stable at this time. At discharge she will continue with metoprolol 25 mg 1 pill twice daily. Recommend to maintain blood pressure less than 130/80. Further adjustment can be done by her PCP. 4. Patient with hyperlipidemia. LDL 74. At discharge she may continue with Crestor 10 mg daily. 5. Patient with former tobacco use. Patient plans to continue to quit. Tobacco cessation education provided. 6. Patient with GERD. At discharge she will continue with Prilosec 40 mg daily. Patient will need to consider GI evaluation as an outpatient to further evaluate. 7. Patient with history of CVA. This appears stable. At discharge she will continue with aspirin, Plavix, metoprolol and Crestor as stated above. 8. Patient with increased anxiety at home. Patient would benefit with counseling. This can be further addressed as an outpatient by her PCP. Diet: AHA Activity: Ad dante Followup: Steven Liang MD [Primary Care Provider] - Time spent managing pt's care (in minutes): 55
[2020-08-09 13:37] VITALS: BP 126/86
[2020-08-09] MEDS ORDERED: ATORVASTATIN 80 MG TAB PO SCH (21:00)
--- NOTE | 2020-08-10 13:42 | OP ---
Surgeon: Steven Liang MD Pipe Roller: Latoya Santos. The patient will remain at bedrest for 2 hours after the catheterization. Then, she will go home and then 2 hours when she was seen in the office in the next 2 weeks. No change in her medical therapy. The case was discussed with Dr. Huynh. Procedures: Left heart catheterization, selective coronary arteriogram. Indication: Unstable angina and positive stress test. History Of Present Illness: Ms. Alba is a 49-year-old black woman with history of hypertension, dy slipidemia, had a positive stress test last week. She was going to have a heart catheterization done ; however, our catheterization machine broke. She comes back to the hospital on Saturday night for [facility] pain, scheduled for catheterization as an inpatient on 08/09/2020. Description Of Procedure: She was brought to the stores laborer, prepped and draped in routine sterile fas hion. She was sedated with fentanyl and Versed. A 6-Azeri sheath introduced in the right common fe moral artery successfully. Angiography there was normal. Nadia catheter left and right were used to cannulate the left main and right main. She had perfectly normal coronaries without any significa nt stenosis. The patient tolerated the procedure well. There were no complications. Blood Loss: 5 mL. Postoperative Diagnosis: Positive stress test, normal heart catheterization. Plan: Plan is to continue medical therapy. LINDA/CHAMP Voice ID: [id number] Report ID: [id number]
== END 2020-08-09 16:28 | disposition home or self-care (01) | DRG 880 ==
LOC: ER 14:51 → ERHOLD 17:16 → 2ND 19:38 → OBSVTOIN 08-09 08:13
PROVIDERS: ADMIT Family Medicine; ATTEND Family Medicine
PROC: 4A023N7 Measurement of Cardiac Sampling and Pressure, Left Heart, Percutaneous Approach (ICD-10-PCS; principal; 2020-08-09)
PROC: B2111ZZ Fluoroscopy of Multiple Coronary Arteries using Low Osmolar Contrast (ICD-10-PCS; 2020-08-09)
DX: F41.9 Anxiety disorder, unspecified (principal); I10 Essential (primary) hypertension; E78.5 Hyperlipidemia, unspecified; K21.9 Gastro-esophageal reflux disease without esophagitis; D64.9 Anemia, unspecified; I25.2 Old myocardial infarction; Z79.82 Long term (current) use of aspirin; Z79.02 Long term (current) use of antithrombotics/antiplatelets; Z79.899 Other long term (current) drug therapy; Z87.891 Personal history of nicotine dependence; Z86.73 Personal history of transient ischemic attack (TIA), and cerebral infarction without residual deficits; Z98.51 Tubal ligation status; Z90.710 Acquired absence of both cervix and uterus; Z20.828 Contact with and (suspected) exposure to other viral communicable diseases
CPT/HCPCS: 36415; 71045; 80048; 80061; 80076; 81003; 82550; 82553; 83735; 83880; 84484; 85025; 85610; 93005; 93454; 99285; C1760; C1893; G0378; J1650; J7120; U0002

== ENCOUNTER 2021-08-20 21:20 | Emergency (ER) | payer SELFPAY ==
[2021-08-21 00:03] LABS: Protime INR 0.97
[2021-08-21 00:05] LABS: Absolute Lymphocytes (CBC) 2.4 K/uL (0.7-4.9); Basophils % 0.4 % (0-1.3); Hematocrit 40.6 % (36.0-45.0); Lymphocytes % 29.4 % (15.3-44.8); MPV 8.3 fL (7.6-11.3); RBC Red Blood Cell Count 5.01 M/uL (3.86-4.86)
[2021-08-21 00:16] LABS: ALT/SGPT 24 U/L (12-78); AST/SGOT 11 U/L (15-37); Albumin 3.7 g/dL (3.4-5.0); Alkaline Phosphatase 85 U/L (45-117); BUN Blood Urea Nitrogen 13 mg/dL (7-18); Bicarbonate 31 mmol/L (21-32); Bilirubin Direct 0.2 mg/dL (0-0.2); Bilirubin Total 0.5 mg/dL (0.2-1.0); Glucose Level 99 mg/dL (74-106); Magnesium 2.6 mg/dL (1.8-2.4); NT PRO-BNP 412 pg/mL (<125); Phosphorus 2.7 mg/dL (2.5-4.9); Potassium 3.5 mmol/L (3.5-5.1); Protein, Total 7.9 g/dL (6.4-8.2); Sodium Level 144 mmol/L (136-145); Troponin (Emerg Dept Use Only) < 0.02 ng/mL (0.0-0.045)
--- NOTE | 2021-08-21 02:32 | EDPHYS ---
Physician Documentation [facility] Name: Radha Alba Age: 50 yrs Sex: Female : 1970 Arrival Date: 08/20/2021 Time: 21:23 Bed 16 Private MD: ED Physician Lan Dale HPI: 08/20 23:39 This 50 yrs old Black Female presents to ER via Ambulatory with complaints of TINGLING mh7 ALL OVER, High Blood Pressure. 23:39 The patient has elevated blood pressure and discovered this at home. Onset: The mh7 symptoms/episode began/occurred this morning, today. Modifying factors: The symptoms are aggravated by Nothing, The symptoms are alleviated by Nothing. Associated signs and symptoms: Pertinent positives: weakness, Generalized fatigue/weakness, tingling sensation all over body, Pertinent negatives: chest pain, dizziness, dyspnea, headache, lightheadedness, nausea, visual changes, vomiting. Severity of symptoms: At its worst the blood pressure was moderate, this morning, in the emergency department the blood pressure is improved, moderately. Historical: - Allergies: 23:00 No Known Allergies; mw - Home Meds: 23:00 hydrochlorothiazide 12.5 mg Oral cap 1 cap once daily [Active]; amlodipine 10 mg tab 1 mw tab twice a day [Active]; Folic Acid Oral [Active]; aspirin 81 mg Oral chew 1 tab once daily [Active]; Metoprolol Tartrate Oral [Active]; Plavix 75 mg Oral tab 1 tab once daily [Active]; rosuvastatin 22 mg tab Oral 1 tab once daily [Active]; 23:30 Iron twice a day [Active]; Omeprazole Oral once daily [Active]; rosuvastatin Oral once kc4 daily [Active]; - PMHx: 23:00 Anemia; High Cholesterol; Hypertension; stroke; uterine fibroids; mw - Immunization history:: Adult Immunizations up to date, Client reports receiving the 2nd dose of the Covid vaccine, Last tetanus immunization: up to date. - Social history:: Smoking status: Patient denies any tobacco usage or history of. ROS: 23:39 Constitutional: Negative for fever, chills, and weight loss, Eyes: Negative for injury, mh7 pain, redness, and discharge, ENT: Negative for injury, pain, and discharge, Neck: Negative for injury, pain, and swelling, Cardiovascular: Negative for chest pain, palpitations, and edema, Respiratory: Negative for shortness of breath, cough, wheezing, and pleuritic chest pain, Abdomen/GI: Negative for abdominal pain, nausea, vomiting, diarrhea, and constipation, Back: Negative for injury and pain, : Negative for injury, bleeding, discharge, and swelling, MS/Extremity: Negative for injury and deformity, Skin: Negative for injury, rash, and discoloration, Psych: Negative for depression, anxiety, suicide ideation, homicidal ideation, and hallucinations, Allergy/Immunology: Negative for hives, rash, and allergies, Endocrine: Negative for neck swelling, polydipsia, polyuria, polyphagia, and marked weight changes, Hematologic/Lymphatic: Negative for swollen nodes, abnormal bleeding, and unusual bruising. 23:39 Neuro: Positive for tingling, weakness, Negative for altered mental status, dizziness, gait disturbance, headache, hearing loss, loss of consciousness, numbness, seizure activity, speech changes, syncope, near syncope, tinnitus, tremor, visual changes. Exam: 23:39 Constitutional: This is a well developed, well nourished patient who is awake, alert, mh7 and in no acute distress. Head/Face: Normocephalic, atraumatic. Eyes: Pupils equal round and reactive to light, extra-ocular motions intact. Lids and lashes normal. Conjunctiva and sclera are non-icteric and not injected. Cornea within normal limits. Periorbital areas with no swelling, redness, or edema. Neck: Trachea midline, no thyromegaly or masses palpated, and no cervical lymphadenopathy. Supple, full range of motion without nuchal rigidity, or vertebral point tenderness. No Meningismus. Chest/axilla: Normal chest wall appearance and motion. Nontender with no deformity. No lesions are appreciated. Cardiovascular: Regular rate and rhythm with a normal S1 and S2. No gallops, murmurs, or rubs. Normal PMI, no JVD. No pulse deficits. Respiratory: Lungs have equal breath sounds bilaterally, clear to auscultation and percussion. No rales, rhonchi or wheezes noted. No increased work of breathing, no retractions or nasal flaring. Abdomen/GI: Soft, non-tender, with normal bowel sounds. No distension or tympany. No guarding or rebound. No evidence of tenderness throughout. Back: No spinal tenderness. No costovertebral tenderness. Full range of motion. Skin: Warm, dry with normal turgor. Normal color with no rashes, no lesions, and no evidence of cellulitis. MS/ Extremity: Pulses equal, no cyanosis. Neurovascular intact. Full, normal range of motion. Neuro: Awake and alert, GCS 15, oriented to person, place, time, and situation. Cranial nerves II-XII grossly intact. Motor strength 5/5 in all extremities. Sensory grossly intact. Cerebellar exam normal. Normal gait. Psych: Awake, alert, with orientation to person, place and time. Behavior, mood, and affect are within normal limits. Vital Signs: 22:59 BP 148 / 95; Pulse 55; Resp 16; Pulse Ox 100% on R/A; Weight 90.72 kg; Height 5 ft. 4 mw in. (162.56 cm); Pain 0/10; 23:43 Temp 98.9(O); kc4 08/21 01:07 BP 143 / 90; Pulse 50; Resp 18; Temp 98.9(O); Pulse Ox 100% on R/A; Pain 0/10; kc4 02:35 BP 139 / 82; Pulse 64; Resp 18; Temp 98.7(O); Pulse Ox 96% on R/A; Pain 0/10; kc4 08/20 22:59 Body Mass Index 34.33 (90.72 kg, 162.56 cm) mw NIH Stroke Scale Scores: 08/20 23:39 NIHSS Score: 0 mh7 Nicole Coma Score: 08/21 01:07 Eye Response: spontaneous(4). Verbal Response: oriented(5). Motor Response: obeys kc4 commands(6). Total: 15. MDM: 02:28 Differential diagnosis: hypertensive crisis, Malignant HTN, CVA, intracerebral mh7 hemorrhage. Data reviewed: vital signs, nurses notes, lab test result(s), cardiac enzymes, CBC, electrolytes, urinalysis, EKG, radiologic studies, CT scan, plain films. Data interpreted: Pulse oximetry: on room air is 100 %. Interpretation: normal. Counseling: I had a detailed discussion with the patient and/or guardian regarding: the historical points, exam findings, and any diagnostic results supporting the discharge/admit diagnosis, the presence of at least one elevated blood pressure reading (>120/80) during this emergency department visit, lab results, radiology results, the need for outpatient follow up, to return to the emergency department if symptoms worsen or persist or if there are any questions or concerns that arise at home. Response to treatment: the patient's symptoms have resolved after treatment, the patient's blood pressure is in an acceptable range, mental status has returned to baseline, the patient no longer shows bradycardia, the patient is not short of breath, the patient is not tachycardic, the patient's pain is gone, the patient's temperature has normalized. ED course: Well-appearing, no acute distress, vital signs stable, no focal neurological deficits. No chest pain, shortness of breath, nausea, vomiting, numbness/tingling, dizziness, or weakness. Patient states that she remembers now that she was started on hydrochlorothiazide last week for her blood pressure and thinks symptoms may be related to the medication. She states that she is ready for discharge and will follow up with her doctor in the morning.. 02:31 Patient medically screened. [facility] 08/20 23:33 Order name: Basic Metabolic Panel; Complete Time: 00:27 [facility] 08/20 23:33 Order name: CBC with Diff; Complete Time: 00: [facility] 08/20 23:33 Order name: LFT's; Complete Time: 00: [facility] 08/20 23:33 Order name: Magnesium; Complete Time: 00:27 [facility] 08/20 23:33 Order name: NT PRO-BNP; Complete Time: 00:27 [facility] 08/20 23:33 Order name: PT-INR; Complete Time: 00: [facility] 08/20 23:33 Order name: Troponin (emerg Dept Use Only); Complete Time: 00:27 [facility] 08/20 23:33 Order name: XRAY Chest (1 view) [facility] 08/20 23:33 Order name: Cardiac monitoring; Complete Time: 23:51 [facility] 08/20 23:33 Order name: EKG - Nurse/Tech; Complete Time: 23:51 [facility] 08/20 23:33 Order name: IV Saline Lock; Complete Time: 23:51 [facility] 08/20 23:33 Order name: Phosphorus; Complete Time: 00:27 [facility] 08/20 23:35 Order name: CT Head Brain wo Cont [facility] 08/20 23:33 Order name: Labs collected and sent; Complete Time: 23:51 [facility] 08/20 23:33 Order name: O2 Per Protocol; Complete Time: 23:51 [facility] 08/20 23:33 Order name: O2 Sat Monitoring; Complete Time: 23:51 [facility] Administered Medications: No medications were administered Disposition Summary: 08/21/21 02:31 Discharge Ordered Location: Home [facility] Problem: new [facility] Symptoms: are resolved [facility] Condition: Stable [facility] Diagnosis - Essential (primary) hypertension [facility] - Paresthesias [facility] Followup: [facility] - With: Private Physician - When: 1 - 2 days - Reason: If symptoms return, Worsening of condition, Recheck today's complaints, Continuance of care, Re-evaluation by your physician Discharge Instructions: - Discharge Summary Sheet [facility] - Hypertension, Adult mh - Paresthesia, [id number] [facility] Forms: - Medication Reconciliation Form [facility] - Thank You Letter [facility] - Antibiotic Education [facility] - Prescription Opioid Use [facility] NIH Stroke Scale - NIH Stroke Score Date: 08/20/2021 Time: 23:39 Total Score = 0 1a. Level of Consciousness (LOC) - 0(Alert) 1b. Level of Consciousness (LOC) (Month \T\ Age) - 0(Both) 1c. LOC Commands (Open \T\ Closes Eyes/Ground Operations Superintendent) - 0(Both) 2. Best Gaze (Lateral Gaze Paresis) - 0(Normal) 3. Visual Field Loss - 0(No visual loss) 4. Facial Palsy - 0(Normal) 5a. Left Arm: Motor (10-second hold) - 0(No drift) 5b. Right Arm: Motor (10-second hold) - 0(No drift) 6a. Left Leg: Motor (5-second hold - always test supine) - 0(No drift) 6b. Right Leg: Motor (5-second hold - always test supine) - 0(No drift) 7. Limb Ataxia (finger/nose \T\ heel/silver - test with eyes open) - 0(Absent) 8. Sensory Loss (pinprick arms/legs/face) - 0(Normal) 9. Best Language: Aphasia (description/naming/reading) - 0(No aphasia) 10. Dysarthria (speech clarity - read or repeat words) - 0(Normal) 11. Extinction and Inattention (visual/tactile/auditory/spatial/personal) - 0(No abnormality) Initials: [facility] Signatures: Dispatcher [employer] Lurdes Crenshaw RN RN mw Holmes, Maurice, MD MD 7 Monika Sanchez [email or web address] Corrections: (The following items were deleted from the chart) 08/20 23:41 23:39 The patient has elevated blood pressure and discovered this [facility]
--- NOTE | 2021-08-21 02:32 | ER ---
Nurse's Notes [facility] Name: Radha Alba Age: 50 yrs Sex: Female : 1970 Arrival Date: 08/20/2021 Time: 21:23 Bed 16 Private MD: Diagnosis: Essential (primary) hypertension;Paresthesias Presentation: 08/20 22:59 Chief complaint: Patient states: Tingling from head to toe and weakness began at 7pm mw tonight. Normal Gait, moves all extremities. Onset of symptoms was August 20, 2021. 22:59 Method Of Arrival: Ambulatory 22:59 Acuity: ALEM 2 23:30 Coronavirus screen: Vaccine status: Patient reports receiving the 2nd dose of the covid kc4 vaccine. Client denies travel out of the [place] in the last 14 days. Ebola Screen: Patient negative for fever greater than or equal to 101.5 degrees Fahrenheit, and additional compatible Ebola Virus Disease symptoms Patient denies exposure to infectious person. Patient denies travel to an Ebola-affected area in the 21 days before illness onset. No symptoms or risks identified at this time. Initial Sepsis Screen: Does the patient meet any 2 criteria? No. Patient's initial sepsis screen is negative. Does the patient have a suspected source of infection? No. Patient's initial sepsis screen is negative. Risk Assessment: Do you want to hurt yourself or someone else? Patient reports no desire to harm self or others. Historical: - Allergies: 23:00 No Known Allergies; mw - Home Meds: 23:00 hydrochlorothiazide 12.5 mg Oral cap 1 cap once daily [Active]; amlodipine 10 mg tab 1 mw tab twice a day [Active]; Folic Acid Oral [Active]; aspirin 81 mg Oral chew 1 tab once daily [Active]; Metoprolol Tartrate Oral [Active]; Plavix 75 mg Oral tab 1 tab once daily [Active]; rosuvastatin 22 mg tab Oral 1 tab once daily [Active]; 23:30 Iron twice a day [Active]; Omeprazole Oral once daily [Active]; rosuvastatin Oral once kc4 daily [Active]; - PMHx: 23:00 Anemia; High Cholesterol; Hypertension; stroke; uterine fibroids; mw - Immunization history:: Adult Immunizations up to date, Client reports receiving the 2nd dose of the Covid vaccine, Last tetanus immunization: up to date. - Social history:: Smoking status: Patient denies any tobacco usage or history of. Screenin/22 01:07 Abuse screen: Denies threats or abuse. Denies injuries from another. Nutritional kc4 screening: No deficits noted. On no prescribed diet Difficulty chewing/swallowing? No. Tuberculosis screening: No symptoms or risk factors identified. Never had TB. Possible symptoms: None Risk factors: None. Fall Risk None identified. No fall in past 12 months (0 pts). No secondary diagnosis (0 pts). IV access (20 points). Ambulatory Aid- Gait- Normal/Bed Rest/Wheelchair (0 pts) Mental Status- Oriented to own ability (0 pts). Total Sanchez Fall Scale indicates No Risk (0-24 pts). Assessment: 01:06 General: Appears in no apparent distress. comfortable, well groomed, Behavior is calm, kc4 cooperative, appropriate for age, Denies fever, feeling ill, fatigue, chills. Pain: Denies pain. Neuro: Level of Consciousness is awake, alert, obeys commands, Oriented to person, place, time, situation, Appropriate for age Manager Maritime are equal bilaterally Moves all extremities. Gait is steady, Speech is normal, Facial symmetry appears normal, Pupils are PERRLA, Tingling in right arm, left arm, right leg and left leg Numbness in right arm, left arm, right leg and left leg. Cardiovascular: No deficits noted. Respiratory: No deficits noted. GI: No deficits noted. No signs and/or symptoms were reported involving the gastrointestinal system. : No deficits noted. No signs and/or symptoms were reported regarding the genitourinary system. EENT: No deficits noted. No signs and/or symptoms were reported regarding the EENT system. Derm: No deficits noted. No signs and/or symptoms reported regarding the dermatologic system. Musculoskeletal: No deficits noted. No signs and/or symptoms reported regarding the musculoskeletal system. Vital Signs: 08/20 22:59 BP 148 / 95; Pulse 55; Resp 16; Pulse Ox 100% on R/A; Weight 90.72 kg; Height 5 ft. 4 mw in. (162.56 cm); Pain 0/10; 23:43 Temp 98.9(O); kc4 08/21 01:07 BP 143 / 90; Pulse 50; Resp 18; Temp 98.9(O); Pulse Ox 100% on R/A; Pain 0/10; kc4 02:35 BP 139 / 82; Pulse 64; Resp 18; Temp 98.7(O); Pulse Ox 96% on R/A; Pain 0/10; kc4 08/20 22:59 Body Mass Index 34.33 (90.72 kg, 162.56 cm) Cook Sta Coma Score: 01:07 Eye Response: spontaneous(4). Verbal Response: oriented(5). Motor Response: obeys kc4 commands(6). Total: 15. NIH Stroke Scale Scores: 08/20 23:39 NIHSS Score: 0 [facility] ED Course: 21:23 Patient arrived in ED. cf2 23:00 Triage completed. 23:19 Lan Dale MD is Attending Physician. [facility] 23:30 Arm band placed on right wrist. kc4 23:36 Monika Sanchez is Primary Nurse. kc4 23:50 Inserted saline lock: 20 gauge in right antecubital area, using aseptic technique. oe Blood collected. 23:51 Basic Metabolic Panel Sent. kc4 23:51 CBC with Diff Sent. kc4 23:51 LFT's Sent. kc4 23:51 Magnesium Sent. kc4 23:51 NT PRO-BNP Sent. kc4 23:51 PT-INR Sent. kc4 23:52 Troponin (emerg Dept Use Only) Sent. kc4 23:54 CT Head Brain wo Cont In Process Unspecified. EDMS 08/21 00:15 XRAY Chest (1 view) In Process Unspecified. EDMS 01:07 Resting quietly. kc4 01:07 No provider procedures requiring assistance completed. kc4 01:07 Patient has correct armband on for positive identification. Bed in low position. Call [facility] light in reach. Side rails up X 1. line supply on. Pulse ox on. NIBP on. Door closed. Noise minimized. Lights dimmed. Warm blanket given. 02:37 IV discontinued, intact, bleeding controlled, No redness/swelling at site. Pressure 4 dressing applied. Administered Medications: No medications were administered Outcome: 02:31 Discharge ordered by . [facility] 02:35 Discharged to home ambulatory. [facility] 02:35 Condition: stable 02:35 Discharge instructions given to patient, Instructed on discharge instructions, follow up and referral plans. Demonstrated understanding of instructions, follow-up care, medications. 02:42 Patient left the ED. kc4 NIH Stroke Scale - NIH Stroke Score Date: 08/20/2021 Time: 23:39 Total Score = 0 1a. Level of Consciousness (LOC) - 0(Alert) 1b. Level of Consciousness (LOC) (Month \T\ Age) - 0(Both) 1c. LOC Commands (Open \T\ Closes Eyes/Subway Repair Supervisor) - 0(Both) 2. Best Gaze (Lateral Gaze Paresis) - 0(Normal) 3. Visual Field Loss - 0(No visual loss) 4. Facial Palsy - 0(Normal) 5a. Left Arm: Motor (10-second hold) - 0(No drift) 5b. Right Arm: Motor (10-second hold) - 0(No drift) 6a. Left Leg: Motor (5-second hold - always test supine) - 0(No drift) 6b. Right Leg: Motor (5-second hold - always test supine) - 0(No drift) 7. Limb Ataxia (finger/nose \T\ heel/silver - test with eyes open) - 0(Absent) 8. Sensory Loss (pinprick arms/legs/face) - 0(Normal) 9. Best Language: Aphasia (description/naming/reading) - 0(No aphasia) 10. Dysarthria (speech clarity - read or repeat words) - 0(Normal) 11. Extinction and Inattention (visual/tactile/auditory/spatial/personal) - 0(No abnormality) Initials: 7 Signatures: Dispatcher [employer] EDMS Lurdes Henson RN RN Alan Marshall Celesta [facility] Lan Dale MD MD 7 Monika Sanchez kc4
[2021-08-21 02:54] VITALS: BP 139/82; TEMP 98.7; O2SAT 96
--- NOTE | 2021-08-21 08:37 | RAD REPORT ---
EXAM DESCRIPTION: RAD - Chest Single View - 08/21/2021 12:15 am CLINICAL HISTORY: Hypertensive Chest pain. COMPARISON: Chest Single View dated 08/08/2020; Chest Single View dated 08/01/2020; Chest Pa And Lat ( 2 Views) dated 05/20/2019; Chest Single View dated 11/12/2016 FINDINGS: Portable technique limits examination quality. Mildly prominent interstitial lung markings are present. The heart is upper limit of normal in size. No displaced fractures. IMPRESSION: No acute intrathoracic process suspected.
--- NOTE | 2021-08-21 12:07 | RAD REPORT ---
EXAM DESCRIPTION: Head Brain Wo Cont CLINICAL HISTORY: 50 years Female Tingling, paresthesia COMPARISON: September 26, 2017. TECHNIQUE: Images were obtained in axial, sagittal, and coronal planes. This exam was performed according to our departmental dose-optimization program which includes use of Automated Exposure Control, adjustment of the mA and/or kV according to patient size and/or use o f iterative reconstruction technique. FINDINGS: Ventricular system appears normal. Decreased attenuation right posterior right posterior p arietal lobe as well as left posterior superior parietal lobe consistent with more remote infarct and encephalomalacia unchanged when correlated with the prior study. No abnormal areas of increased attenuation seen. No extra-axial fluid collections noted. No evidence for skull fracture. Symmetric aeration mastoid air cells bilaterally. Unremarkable parana héctor sinuses. IMPRESSION: No acute intracranial abnormality. No evidence for hemorrhage, mass lesion, or large acu te infarction. 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 Electronically signed by: Sima Mejia MD 08/21/2021 12:10 AM ORDNANCE ARTIFICER HELPER Due to temporary technical issues with the PACS/Fluency reporting system, reports are being signed by the in house radiologist without review as a courtesy to ensure prompt reporting. The interpreting r adiologist is fully responsible for the content of the report.
--- NOTE | 2021-08-23 08:10 | EKG ---
Test Date: 2021-08-21 Test Time: 02:05:02 Form Tamper Operator: MALATHI MEASUREMENT RESULTS: Intervals: Rate: 54 SC: 122 QRSD: 88 QT: 452 QTc: 428 [place]: P: 42 SC: 122 QRS: 20 T: -35 INTERPRETIVE STATEMENTS: Sinus bradycardia T wave abnormality, consider inferolateral ischemia Abnormal ECG Compared to ECG 08/08/2020 15:03:21 Possible ischemia now present Sinus rhythm no longer present T-wave abnormality still present Electronically Signed On 08-23-21 08:04:02 EXERCISER by Steven Liang
== END 2021-08-21 02:42 | disposition home or self-care (01) ==
LOC: ER 21:20
DX: I10 Essential (primary) hypertension (principal); Z79.01 Long term (current) use of anticoagulants; Z79.82 Long term (current) use of aspirin
CPT/HCPCS: 36415; 70450; 71045; 80048; 80076; 83735; 83880; 84100; 84484; 85025; 85610; 93005; 99284